=== PATIENT | male | born 1960 | race Two or more races ===

== ENCOUNTER 2018-06-09 07:37 | Day surgery (SDC) | payer OTHER ==
[~2018-06-09] VITALS: Ht 182.9 cm; Wt 104.9 kg
[~2018-06-09 07:37] MED LIST: DESFLURANE 15 MIN ONE
[2018-06-09] MEDS ORDERED: ARIP30TA4 PO (08:11)
[2018-06-09 08:25] VITALS: Ht 182.9 cm; Wt 104.9 kg
[2018-06-09 08:26] VITALS: BP 130/76; PULSE 80; RESP 16
--- NOTE | 2018-06-09 09:10 | HPN ---
Date/Time of Note Date/Time of Note DATE: 06/09/18 TIME: 09:10 Interval H&P Admission Note Pt. seen H&P reviewed: No system changes KALPANA LAWSON M.D. Jun 09, 2018 09:10
--- NOTE | 2018-06-09 09:11 | PREAC ---
Date/Time of Note Date/Time of Note DATE: 06/09/18 TIME: 09:09 Anesthesia Eval and Record Evaluation Time Pre-Procedure Interview DATE: 06/09/18 TIME: 09:09 Age 57 Sex male NPO: 8 hrs Preoperative diagnosis deviated septum Planned procedure septoplasty , turbinate reduction b/l Past Medical History Past Medical History: Includes Pulm: Sleep Apnea GI: Morbid obesity Psych: Other ("mental problem" as per patient) Surgery & Anesthesia Issues No known issue Meds Anticoagulation: No Beta Tessa within 24 hr: No Reason Beta Tessa not given: Pt. not on B-Tessa Reported Medications Aripiprazole* (Abilify*) 30 Mg Tablet, 30 MG PO DAILY, #30 TAB 06/09/18 Meds reviewed: Yes Allergies Coded Allergies: No Known Allergy (Unverified , 06/09/18) Allergies Reviewed: Yes Labs/Studies Labs Reviewed: Reviewed by anesthesiologist test: Negative Studies: ECG Pre-procedure Exam Last vitals Vital Signs Date Temp Pulse Resp B/P (MAP) Pulse Ox O2 O2 Flow FiO2 Time Delivery Rate 06/09/18 98.4 80 16 130/76 95 Room Air 08:26 (94) Airway: Adequate mouth opening, Adequate thyromental dist Mallampati: Mallampati II Teeth: Normal Lung: Normal Heart: Normal ASA Physical Status ASA physical status: 2 Emergency: None Planned Anesthetic General/MAC: ETT Pre-operative Attestations Prior to commencing anesthesia and surgery, the patient was re-evaluated, there was verification of: *The patient's identity *The results of appropriate recent lab work and preoperative vital signs *The above evaluation not changing prior to induction *Anesthetic plan, risk benefits, alternative and complications discussed with patient/family; questions answered; patient/family understands, accepts and wishes to proceed. TICO CRUZ Jun 09, 2018 09:11
[2018-06-09] MEDS ORDERED: COCAINE 4% 4 ML TOP ONE ×2 (09:15→09:19)
[2018-06-09] MEDS ORDERED: LIDOCAINE 1%/EPI (1:100,000) (MDV) 20 ML INJ ONE (09:15)
[2018-06-09] MEDS ORDERED: LIDOCAINE 1%/EPI (1:100,000) (MDV) 20 ML ONE (09:19)
[2018-06-09] MEDS ORDERED: NEOMYC/POLYMYX/BACIT 3.5GM OPH OINT ONE (09:21)
[2018-06-09] MEDS ORDERED: NEOMYC/POLYMYX/BACIT 30 GM OINT ONE (09:22)
[2018-06-09] MEDS ORDERED: ALBUTEROL 0.083% (NEB) 2.5 MG/3 ML AMP HHN PRN (09:30)
[2018-06-09] MEDS ORDERED: HYDROmorphONE 1 MG/5 ML IV SYRINGE IV PRN ×3 (09:30)
[2018-06-09] MEDS ORDERED: ONDANSETRON 4 MG INJ IV PRN (09:30)
[2018-06-09] MEDS ORDERED: MEPERIDINE 25 MG INJ IV PRN (09:30)
[2018-06-09] MEDS ORDERED: METOCLOPRAMIDE 10 MG INJ IV PRN (09:30)
[2018-06-09] MEDS ORDERED: DIPHENHYDRAMINE 50 MG INJ IV PRN (09:30)
[2018-06-09] MEDS ORDERED: FENTAnyl 50 MCG/ML VIAL IV PRN ×2 (09:30)
[2018-06-09] MEDS ORDERED: FENTAnyl 50 MCG/ML VIAL ONE (09:34)
[2018-06-09] MEDS ORDERED: PROPOFOL 40 ML ONE (09:40)
[2018-06-09] MEDS ORDERED: ROCURONIUM 50 MG INJ ONE (09:40)
[2018-06-09] MEDS ORDERED: SUCCINYLCHOLINE CHLORIDE 100 MG/5 ML SYG IV ONE (09:41)
[2018-06-09] MEDS ORDERED: CEFAZOLIN 1 GM INJ ONE (09:41)
[2018-06-09] MEDS ORDERED: LIDOCAINE 100 MG SYRINGE ONE (09:41)
[2018-06-09] MEDS ORDERED: DEXAMETHASONE 4 MG/ML 5 ML INJ ONE (09:56)
[2018-06-09] MEDS ORDERED: BACITRACIN/POLYMYXIN 0.9 GM OINT TOP ONE (10:34)
[2018-06-09] MEDS ORDERED: SUGAMMADEX SODIUM 200 MG/2 ML VIAL IV ONE (10:43)
--- NOTE | 2018-06-09 10:57 | OPR ---
Date/Time of Note Date/Time of Note DATE: 06/09/18 TIME: 10:53 Operative Report Procedure Date: Jun 09, 2018 Preoperative Diagnosis 1.SEPTAL DEVIATION. 2. NASAL TURBINATE TISSUE HYPERTROPHY. 3. CHRONIC NASAL OBSTRUCTION. Postoperative Diagnosis SAME. Operation/Procedure Performed 1. SEPTOPLASTY VIA SNR. 2. BILATERAL NASAL LASER 532 NM TURBINOPLASTY VIA SMR. Surgeon see signature line Learning Operations Specialist NONE. Anesthesia Type: general (WITH 10 CC 1% LIDOCAIMNE WITH EPI 1:100,000 SOLN. 4% 4CC COCCAINE TOPICAL SOLN. OT TUBE INTUBATION.) Estimated Blood Loss: 10 - 50 ml's Transfusion none Specimen SEPTAL CARTILAGE AND BONE. Grafts/Implants none Tubes/Drains NONE. Complications none Pt Condition Post Procedure: stable Disposition: PACU Indications TO IMPROVE NASAL BREATHING. Procedure Description SEE DICTATED OPERATIVE REPORT. KALPANA LAWSON M.D. Jun 09, 2018 10:57
--- NOTE | 2018-06-09 11:00 | PDOCDIS ---
Discharge Instructions DIAGNOSIS Discharge Diagnosis 1.SEPTAL DEVIATION. 2. NASAL TURBINATE TISSUE HYPERTROPHY. 3. CHRONIC NASAL OBSTRUCTION. CONDITION [id number] Patient Condition: Qximq6h Good HOME CARE INSTRUCTIONS: [id number] Diet Instructions: Nhtlg9t Regular ACTIVITY: [id number] Activity Restrictions: Lajhw6x Slowly Increase Activity Rest between Activity Avoid heavy lifting Avoid Heavy Housework Raxvl0Bh Bathing Restrictions: Zynhs9v Tub Bath FOLLOW UP/APPOINTMENTS Follow-up Plan MY OFFICE IN 10 14 DAYS. SCHOOL/WORK RELEASE May return to School/Work on: Jun 16, 2018 May return to School/Work with: No Restrictions KALPANA LAWSON M.D. Jun 09, 2018 11:00
[2018-06-09 11:01] VITALS: BP 140/80; PULSE 92; RESP 20
[2018-06-09 11:05] VITALS: BP 132/80; PULSE 88; RESP 13
[2018-06-09 11:10] VITALS: BP 131/81; PULSE 90; RESP 12
[2018-06-09 11:15] VITALS: BP 124/73; PULSE 88; RESP 16
[2018-06-09 11:49] VITALS: BP 124/77; PULSE 82; RESP 18
--- NOTE | 2018-06-09 12:50 | OPR ---
DATE OF OPERATION: 06/09/2018 SURGEON: Scott Carias MD PREOPERATIVE DIAGNOSES: 1. Septal deviation. 2. Bilateral nasal turbinate tissue hypertrophy. 3. Chronic nasal obstruction. POSTOPERATIVE DIAGNOSES: 1. Septal deviation. 2. Bilateral nasal turbinate tissue hypertrophy. 3. Chronic nasal obstruction. OPERATION PERFORMED: 1. Septoplasty using submucosal resection technique. 2. Bilateral laser turbinoplasty procedure using submucosal resection technique using a 532 nanomete r laser. ESTIMATED BLOOD LOSS: Approximately 20 mL. COMPLICATIONS: No complications. SPECIMENS SENT TO LAB: Septal cartilage and bone. ANESTHESIA: General anesthesia with orotracheal tube intubation. The patient also received topical cocaine 4% using 4 mL using cottonoids. The patient also received a local injection, an infiltrate o f 1% lidocaine with epinephrine 1:100,000 using approximately 10 mL of 25-gauge 1-1/2 inch needle. T he patient also had IV Ancef before the case was begun. DESCRIPTION OF PROCEDURE: The patient was taken to the operating room, placed on the surgical table in supine position, made comfortable by the anesthesiologist. The patient had EKG, saturation monito r and blood pressure cuff applied. At this point, the patient was then placed under general anesthes ia through a previously started IV in the preinduction area. At this point, the patient was rendered under general anesthesia before being successfully orotracheally intubated with orotracheal tube wit hout any complications. The tube was then taped to the lower lip in the midline and the eyes were ta ped for protection. At this point, the patient then had a brief time-out with patient identification and procedure, and all were in agreement. At this point, the patient was draped off in usual steril e fashion using a split sheet. At this point, wet towels placed around the eyes and wet towels and a split sheet to prevent fire. All personnel in the operating room placed safety goggles on their eye s for protection. At this point, the nasal cavity was then inspected as the patient was found to hav e a severely deviated septum and anterior septal margin to the left side. Turbinates are also swolle n with obstruction. At this point, an injection using 1% lidocaine with epinephrine 1:100,000 inject ed into the floor of the nose septal margin as well as the inferior turbinates bilaterally. There is also injection through an intercartilage approach to the lateral dorsum of the nose. At this point, the septum was noted to freddie as the cottonoids were placed inside the anterior ethmoid and behind the middle turbinate with cottonoids using 4% cocaine soaked. At this point, the time was elapsed to allow maximal effect of this medication as the KTP 532 nanometer laser was then made ready at 8 watt s continuous power. There was a foot pedal to activate the laser with the straight handheld piece wi th suction attachment. At this point, the procedure was begun by removing the cottonoids and introdu cing a laser fiber into the left inferior turbinate. The laser was activated as smoke was evacuated through the evacuator as the inferior turbinate. The left side was noted to shrink in size. Using a stabbing technique in a posterior direction, the inferior turbinate was then reduced in size. Then, lateralized toward the medial wall and maxillary sinus with a nasal speculum. This gave patient ___ __ left side of the nose as the right side was done in a similar fashion. It too was reduced in the submucosal space. At this point, blood was removed from the nasal cavity with Ness suction as the turbinate reduction procedure was terminated. The laser was then removed from the field in preparat ion for septoplasty. A septoplasty procedure was begun by making a hemitransfixion incision on the left side of the nose d own through the mucosa down to the underlying cartilage. There was a #15 Bard-Silvestre sharp stainless steel blade. A mucoperichondrial flap was then elevated on the left side of the nose with care not to damage or tear the flap. The elevation was over the deviated anterior septal margin with approach to the posterior aspect of the septum. Hemitransfixion incision was completed through the septum to the right side of the nose with care not to damage the mucoperichondrium on the right side. The Cot tle elevator was then advanced to the right side to elevate a mucoperichondrial flap to isolate the d eviated anterior portion of the septal cartilage. Silvia forceps was then used to remove the sunita ated cartilage and bone from between the flaps to allow the flap to swing back towards the midline. This was done using a swinging door technique. Septum was then noted to be in the midline as the hem itransfixion incision was then sutured closed with good mucosal edge closure using 4-0 Vicryl suture in simple interrupted fashion. The septum was then noted to move to the midline as plication sutures were placed using a 4-0 Vicryl suture to keep the flap in the midline. At this point, the septum wa s noted to be in the midline at the end of procedure. Sponge count and instrument count correct x3 a s blood was removed from the nasal cavity with Ness suction. Bacitracin ointment was then packed inside the nose used as a packing, a 4 x 4 dressing placed beneath the nose to catch drainage. This ended the procedure. Sponge count and instrument count were correct x3. There were no complications during the procedure. The patient was extubated and taken to recovery room. She is currently doing well, expects to be discharged home unless postoperative complications develop. INDICATIONS: Mr. Alfred is a 57-year-old male who has a history of chronic nasal obstruction, faile d Flonase and topical nasal steroid treatments. The patient continues to have nasal obstruction and difficulties with his breathing. The patient is currently scheduled for today's procedure, include a septoplasty procedure bilateral laser turbinoplasty procedures indicated. Risks, benefits, and alte rnatives have been explained thoroughly to Mr. Alfred. They include infection, bleeding, scar forma tion, possible septal perforation as well as possible numbness to the upper teeth. He also understan ds the risks of general and local anesthetic agents possible reactions. He signed consent after his questions were answered. Dictated By: SCOTT VILLA/ADAM Conf#: [id number] DID#: [id number]
--- NOTE | 2018-06-09 17:50 | PAC ---
Date/Time of Note Date/Time of Note DATE: 06/09/18 TIME: 17:50 Post-Anesthesia Notes Post-Anesthesia Note Last documented vital signs Vital Signs Date Temp Pulse Resp B/P (MAP) Pulse Ox O2 O2 Flow FiO2 Time Delivery Rate 06/09/18 97.9 82 18 124/77 96 Room Air 11:49 (93) Activity: WNL Respiratory function: WNL Cardiovascular function: WNL Mental status: Baseline Pain reasonably controlled: Yes Hydration appropriate: Yes Nausea/Vomiting absent: Yes TICO CRUZ Jun 09, 2018 17:50
== END 2018-06-09 12:35 | disposition home or self-care (01) ==
LOC: SDS 07:37
PROVIDERS: ATTEND Otolaryngology Otolaryngology/Facial Plastic Surgery
DX: J34.2 Deviated nasal septum (principal); J34.3 Hypertrophy of nasal turbinates; E66.01 Morbid (severe) obesity due to excess calories; Z68.31 Body mass index [BMI] 31.0-31.9, adult
CPT/HCPCS: 30140; 30520; 88300; J0690; J1100; J2001; J3010